=== PATIENT | female | born 1980 | race African-American/Black ===

== ENCOUNTER 2019-02-27 03:15 | Emergency (ER) | payer BC ==
[~2019-02-27] VITALS: Ht 162.6 cm; Wt 82.7 kg
[~2019-02-27 03:15] MED LIST: APIX5TAB PO; FOLI-49 PO; MAGN400T38 PO; MULT-762 PO; TRAM50TA2 PO; VITA1TAB83 PO
[2019-02-27] MEDS ORDERED: morphine 4 MG/ML VIAL IV STA (03:18)
[2019-02-27] MEDS ORDERED: ONDANSETRON 4 MG INJ IV STA (03:18)
[2019-02-27] MEDS ORDERED: SOD CHLORIDE 0.9% 500 ML IV STA (03:18)
[2019-02-27 03:23] VITALS: Ht 162.6 cm; Wt 82.7 kg
[2019-02-27] MEDS ORDERED: IOHEXOL 100 ML ONE (04:18)
[2019-02-27] MEDS ORDERED: SOD CHLORIDE 0.9% 100 ML ONE (04:18)
[2019-02-27 05:15] VITALS: BP 100/56; PULSE 78; RESP 16
== END 2019-02-27 05:21 | disposition home or self-care (01) ==
LOC: E/R 03:15
DX: R07.89 Other chest pain (principal)
CPT/HCPCS: 71045; 71275; 80053; 83880; 84484; 85025; 85610; 85730; 93005; J7040; Q9967; 36415